=== PATIENT | female | born 1970 | race Caucasian/White ===

== ENCOUNTER 2019-04-07 05:34 | Inpatient (IN) ==
[2019-04-06 11:04] LABS: Basophils % 0.2 % (0.0-0.8); Eosinophils # 0.3 10*3/uL (0.0-0.87); Eosinophils % 3.2 % (0.00-10.9); Hematocrit 48.7 VOL% (35.7-47.0); Hemoglobin 15.3 GM/DL (12.0-16.0); Immature Granulocytes % 0.8 %; Immature Granulocytes Absolute 0.08 #; Lymphocytes # 2.7 10*3/uL (1.4-4.0); Lymphocytes % 25.8 % (21.3-54.2); Mean Corpuscular HGB Conc 31.4 GM/DL (32-36); Mean Corpuscular Volume 96.6 FL (87-102); Mean Platelet Volume 10.7 FL (9.6-12.0); Monocytes % 8.9 % (1.7-12.7); Neutrophils % 61.1 % (38.7-73.9); Platelet Count 299 T/CUMM (130-400); Red Blood Count 5.04 MC/CUMM (3.8-5.5); Red Cell Distribution Width 15.4 % (9.3-17.3); White Blood Count 10.6 T/CUMM (4-12)
[2019-04-06 11:10] LABS: Apearance,Urine CLEAR (Clear); Bilirubin,Urine Negative (Negative); Blood, Urine Small mg/dL (Negative); Glucose,Urine (UA) Negative (Negative); Hyaline Casts,Urine 1 /LPF (0-3); Ketones,Urine Negative (Negative); Mucus,Urine Occasional /LPF (Occasional); Nitrite,Urine Negative (Negative); Protein,Urine 100 MG/DL; RBC,Urine 3 /HPF (0-4); Squamous Epithelial Cell,Urine Occasional /HPF (0-10); Urine Color Yellow (Yellow); Urine Specific Gravity 1.012 (1.001-1.035); Urine Urobilinogen < 2.0 EU/DL (0.2-1.0); WBC,Urine <1 /HPF (0-6)
[2019-04-06 11:12] LABS: PT Patient Result 10.8 SECS
[2019-04-06 11:25] LABS: Calcium 9.5 MG/DL (8.5-10.1); Osmolality,Calculated 279.8 MOS/KG (273-304)
[~2019-04-07 05:34] MED LIST: DIAZEPAM 5 MG TABLET PO ONE; FAMOTIDINE 20 MG TABLET PO ONE; SODIUM CHLORIDE 0.9% 1,000 ML IV PRN; TISSUE ADHESIVE 1 EACH APPLICATOR TOP ONE; VANCOMYCIN 1,000 MG VIAL ONE
[2019-04-07] MEDS ORDERED: DIAZEPAM 5 MG TABLET ONE (06:08)
[2019-04-07] MEDS ORDERED: CEFUROXIME 1,500 MG VIAL ONE (06:08)
[2019-04-07] MEDS ORDERED: METOCLOPRAMIDE 10 MG/2 ML VIAL ONE (06:08)
[2019-04-07] MEDS ORDERED: FAMOTIDINE 20 MG TABLET ONE (06:08)
[2019-04-07] MEDS ORDERED: CEFUROXIME INJ 1,500 MG in SYRINGE 1 EACH IV ONE (06:30)
[2019-04-07] MEDS ORDERED: METOCLOPRAMIDE 10 MG/2 ML VIAL IV ONE (06:30)
[2019-04-07] MEDS: SODIUM CHLORIDE 0.9% 1,000 ML IV SCH (07:20)
[2019-04-07] MEDS ORDERED: NITROPRUSSIDE 50 MG/2 ML VIAL ONE (07:58)
[2019-04-07] MEDS ORDERED: POTASSIUM CHLORIDE RIDER 100 ML IV ONE ×2 (07:59)
[2019-04-07] MEDS ORDERED: PHENYLEPHRINE DRIP 40 MG/250 ML PREMIX IV ONE (07:59)
[2019-04-07] MEDS ORDERED: SODIUM BICARBONATE 50 MEQ/50 ML VIAL IV ONE ×2 (07:59→11:20)
[2019-04-07] MEDS ORDERED: CALCIUM CHLORIDE 1,000 MG/10 ML SYRINGE IV ONE (07:59)
[2019-04-07 08:01] LABS: ABG Base Excess -0.7 MMOL/L (-2.5-2.5); ABG HCO3 23.9 MMOL/L (20-26); ABG Oxygen Saturation 97.4 % (95-100); ABG PCO2 45.2 MM HG (35-48); ABG PH 7.356 (7.35-7.45); ABG TCO2 21.9 MMOL/L (23-27); Glucose Heart Surgery 163 MG/DL (74-106); Hematocrit Heart Surgery 42.8 PERCENT (37-47); Hemoglobin Heart Surgery 13.9 G/DL (12.0-16.0); PCO2 Patient Temp Arterial 45.2 MMHG; PH Patient Temp Arterial 7.356; Patient Temperature 37 CELCIUS; Potassium Heart/CVR 2.8 MMOL/L (3.5-5.1); Sodium Heart/CVR 140 MMOL/L (135-145)
[2019-04-07 08:26] LABS: ABG Base Excess -0.6 MMOL/L (-2.5-2.5); ABG Oxygen Saturation 99.8 % (95-100); ABG PH 7.398 (7.35-7.45); ABG TCO2 20.9 MMOL/L (23-27); Glucose Heart Surgery 151 MG/DL (74-106); Hematocrit Heart Surgery 41.7 PERCENT (37-47); Hemoglobin Heart Surgery 13.6 G/DL (12.0-16.0); Ionized Calcium Arterial 1.21 MMOL/L (1.21-1.46); PH Patient Temp Arterial 7.398; Patient Temperature 37 CELCIUS; Potassium Heart/CVR 3.6 MMOL/L (3.5-5.1); Sodium Heart/CVR 139 MMOL/L (135-145)
[2019-04-07 08:50] LABS: Apearance,Urine CLEAR (Clear); Bilirubin,Urine Negative (Negative); Blood, Urine Small mg/dL (Negative); Glucose,Urine (UA) Negative (Negative); Ketones,Urine Negative (Negative); Mucus,Urine Occasional /LPF (Occasional); Nitrite,Urine Negative (Negative); Protein,Urine 30 MG/DL; RBC,Urine 2 /HPF (0-4); Squamous Epithelial Cell,Urine Occasional /HPF (0-10); Urine Color Yellow (Yellow); Urine Specific Gravity 1.009 (1.001-1.035); Urine Urobilinogen < 2.0 EU/DL (0.2-1.0)
[2019-04-07 08:52] LABS: Hematocrit Heart Surgery 31.3 PERCENT (37-47); Hemoglobin Heart Surgery 10.1 G/DL (12.0-16.0); PCO2 Patient Temp Venous 29.6 MM HG; PH Patient Temp Venous 7.507; PO2 Patient Temp Venous 38.5 MM HG; Potassium Heart/CVR 3.9 MMOL/L (3.5-5.1); VBG Base Excess 1.2 MEQ/L (0-4); VBG HCO3 25.4 MEQ/L (24-28); VBG Oxygen Saturation 91.5 %; VBG PCO2 41.6 MMHG (41-51); VBG PH 7.405; VBG PO2 61.4 MMHG (17-40)
[2019-04-07] MEDS ORDERED: EPINEPHrine 1 MG/10 ML SYRINGE ONE (09:19)
[2019-04-07] MEDS ORDERED: ALBUMIN 5% 12.5 GM/250 ML VIAL IV ONE ×2 (09:19→11:21)
[2019-04-07] MEDS ORDERED: ATROPINE 1 MG/10 ML SYRINGE ONE (09:20)
[2019-04-07 09:28] LABS: Hematocrit Heart Surgery 30.3 PERCENT (37-47); Hemoglobin Heart Surgery 9.8 G/DL (12.0-16.0); PCO2 Patient Temp Venous 26.9 MM HG; PH Patient Temp Venous 7.532; PO2 Patient Temp Venous 38.1 MM HG; Potassium Heart/CVR 4.4 MMOL/L (3.5-5.1); VBG Base Excess 0.8 MEQ/L (0-4); VBG HCO3 25.1 MEQ/L (24-28); VBG Oxygen Saturation 91.6 %; VBG PCO2 37.8 MMHG (41-51); VBG PH 7.429; VBG PO2 60.7 MMHG (17-40)
[2019-04-07 09:51] LABS: Hematocrit Heart Surgery 32.4 PERCENT (37-47); Hemoglobin Heart Surgery 10.5 G/DL (12.0-16.0); PCO2 Patient Temp Venous 25.7 MM HG; PH Patient Temp Venous 7.544; Potassium Heart/CVR 4.7 MMOL/L (3.5-5.1); VBG Base Excess 0.7 MEQ/L (0-4); VBG HCO3 24.9 MEQ/L (24-28); VBG Oxygen Saturation 89.1 %; VBG PCO2 36.1 MMHG (41-51); VBG PH 7.44; VBG PO2 54.6 MMHG (17-40)
[2019-04-07 10:21] LABS: Hemoglobin Heart Surgery 11.1 G/DL (12.0-16.0); PCO2 Patient Temp Venous 23.9 MM HG; PH Patient Temp Venous 7.58; PO2 Patient Temp Venous 32.4 MM HG; VBG Base Excess 0.1 MEQ/L (0-4); VBG HCO3 23.5 MEQ/L (24-28); VBG Oxygen Saturation 89.3 %; VBG PCO2 33.9 MMHG (41-51); VBG PH 7.459; VBG PO2 56.5 MMHG (17-40)
[2019-04-07 10:56] LABS: Hemoglobin Heart Surgery 10.4 G/DL (12.0-16.0); PCO2 Patient Temp Venous 37.6 MM HG; PH Patient Temp Venous 7.416; PO2 Patient Temp Venous 40.5 MM HG; Potassium Heart/CVR 5.2 MMOL/L (3.5-5.1); VBG Base Excess -0.1 MEQ/L (0-4); VBG HCO3 23.9 MEQ/L (24-28); VBG Oxygen Saturation 74.4 %; VBG PCO2 37.6 MMHG (41-51); VBG PH 7.416; VBG PO2 40.5 MMHG (17-40)
[2019-04-07] MEDS ORDERED: MANNITOL 100 GM/500 ML BAG IV ONE (11:19)
[2019-04-07] MEDS ORDERED: HEPARIN 10,000 UNIT/10 ML VIAL ONE (11:20)
[2019-04-07] MEDS ORDERED: MAGNESIUM SULFATE 5 GM/10 ML VIAL IV ONE (11:20)
[2019-04-07] MEDS ORDERED: DEXTROSE 5% KCL 20 MEQ 40 MEQ/2,000 ML BAG IV ONE (11:20)
[2019-04-07] MEDS ORDERED: ALBUMIN 25% 25 GM/100 ML VIAL IV ONE (11:20)
[2019-04-07] MEDS ORDERED: PROTAMINE SULFATE 250 MG/25 ML VIAL IV ONE (11:20)
[2019-04-07] MEDS ORDERED: methylPREDNISolone SOD SUC 1,000 MG/8 ML VIAL ONE (11:20)
[2019-04-07] MEDS ORDERED: FUROSEMIDE 20 MG/2 ML VIAL ONE (11:21)
[2019-04-07] MEDS ORDERED: PROTAMINE SULFATE 50 MG/5 ML VIAL IV ONE (11:21)
[2019-04-07] MEDS ORDERED: POTASSIUM CHLORIDE 20 MEQ/10 ML VIAL ONE (11:21)
[2019-04-07 11:31] LABS: ABG Base Excess -3.1 MMOL/L (-2.5-2.5); ABG HCO3 21.8 MMOL/L (20-26); ABG PCO2 38.8 MM HG (35-48); ABG PH 7.361 (7.35-7.45); ABG TCO2 19.9 MMOL/L (23-27); Glucose Heart Surgery 293 MG/DL (74-106); Hematocrit Heart Surgery 33.1 PERCENT (37-47); Hemoglobin Heart Surgery 10.7 G/DL (12.0-16.0); Ionized Calcium Arterial 1.49 MMOL/L (1.21-1.46); PCO2 Patient Temp Arterial 38.8 MMHG; PH Patient Temp Arterial 7.361; Patient Temperature 37 CELCIUS; Potassium Heart/CVR 4.1 MMOL/L (3.5-5.1); Sodium Heart/CVR 134 MMOL/L (135-145)
[2019-04-07] MEDS ORDERED: MAGNESIUM SULF RIDER 4 GM in PREMIX 1 EACH IV PRN (12:27)
[2019-04-07] MEDS ORDERED: SODIUM CHLORIDE 0.9% 250 ML IV PRN (12:27)
[2019-04-07] MEDS ORDERED: CALCIUM CHLORIDE 1,000 MG/10 ML SYRINGE IV PRN (12:27)
[2019-04-07] MEDS ORDERED: POTASSIUM CHLORIDE RIDER 20 MEQ in PREMIX 1 EACH IV PRN (12:27)
[2019-04-07] MEDS ORDERED: INSULIN REGULAR 100 UNIT/ML IV PRN (12:27)
[2019-04-07] MEDS ORDERED: DEXTROSE 50% 25 GM/50 ML VIAL IV PRN ×2 (12:27)
[2019-04-07] MEDS ORDERED: MAGNESIUM SULF RIDER 2 GM in PREMIX 1 EACH IV PRN (12:27)
[2019-04-07] MEDS ORDERED: MIDAZOLAM 2 MG/2 ML VIAL IV PRN (12:27)
[2019-04-07] MEDS ORDERED: CHLORHEXIDINE 4% SOLN 118 ML BOTTLE TOP PRN (12:27)
[2019-04-07] MEDS ORDERED: ACETAMINOPHEN 650 MG SUPP RECTAL PRN (12:27)
[2019-04-07] MEDS ORDERED: ONDANSETRON 4 MG/2 ML VIAL IV PRN (12:27)
[2019-04-07] MEDS ORDERED: INSULIN REGULAR DRIP 100 ML IV SCH (12:30)
[2019-04-07] MEDS: SODIUM CHLORIDE 0.45% 1,000 ML IV SCH ×2 (13:00)
[2019-04-07] MEDS: ALBUMIN 5% 12.5 GM in PREMIX 1 EACH IV PRN ×3 (13:00→19:49)
[2019-04-07 13:04] LABS: ABG Base Excess -3.1 MMOL/L (-2.5-2.5); ABG HCO3 21.8 MMOL/L (20-26); ABG Oxygen Saturation 93.6 % (95-100); ABG PCO2 53.9 MM HG (35-48); ABG PO2 81.5 MM HG (80-95); ABG TCO2 22.2 MMOL/L (23-27); Glucose Heart Surgery 224 MG/DL (74-106); Hematocrit Heart Surgery 38.1 PERCENT (37-47); Hemoglobin Heart Surgery 12.4 G/DL (12.0-16.0); Potassium Heart/CVR 3.8 MMOL/L (3.5-5.1)
[2019-04-07 13:06] LABS: Basophils % 0.2 % (0.0-0.8); Eosinophils # 0.2 10*3/uL (0.0-0.87); Eosinophils % 0.9 % (0.00-10.9); Hematocrit 38.5 VOL% (35.7-47.0); Immature Granulocytes % 1.2 %; Immature Granulocytes Absolute 0.22 #; Lymphocytes % 10.7 % (21.3-54.2); Mean Corpuscular HGB Conc 30.9 GM/DL (32-36); Mean Corpuscular Volume 98.5 FL (87-102); Mean Platelet Volume 11.2 FL (9.6-12.0); Monocytes % 7.1 % (1.7-12.7); Neutrophils % 79.9 % (38.7-73.9); Red Cell Distribution Width 15.5 % (9.3-17.3)
[2019-04-07 13:11] LABS: Hemoglobin 11.9 GM/DL (12.0-16.0); Platelet Count 224 T/CUMM (130-400); Red Blood Count 3.91 MC/CUMM (3.8-5.5); White Blood Count 18.4 T/CUMM (4-12)
[2019-04-07] MEDS ORDERED: PHENYLEPHRINE DRIP 20 MG/250 ML PREMIX IV ONE (13:14)
[2019-04-07] MEDS ORDERED: CALCIUM CHLORIDE 1,000 MG/10 ML VIAL IV ONE (13:14)
[2019-04-07] MEDS ORDERED: SEVOFLURANE 1 UNIT/15 MINUTE INH ONE (13:15)
[2019-04-07] MEDS ORDERED: SUFentanil 250 MCG/5 ML AMP ONE (13:15)
[2019-04-07] MEDS ORDERED: ETOMIDATE 40 MG/20 ML VIAL IV ONE (13:15)
[2019-04-07] MEDS ORDERED: MIDAZOLAM 10 MG/2 ML VIAL ONE (13:15)
[2019-04-07] MEDS ORDERED: VECURONIUM 10 MG VIAL IV ONE (13:15)
[2019-04-07] MEDS ORDERED: SODIUM CHLORIDE 0.9% 1,000 ML IV ONE (13:16)
[2019-04-07] MEDS ORDERED: SODIUM CHLORIDE 0.9% 100 ML IV ONE (13:16)
[2019-04-07] MEDS ORDERED: NITROGLYCERIN DRIP 50 MG/250 ML BOTTLE IV ONE (13:16)
[2019-04-07] MEDS ORDERED: SODIUM CHLORIDE 0.9% 250 ML IV ONE (13:16)
[2019-04-07] MEDS ORDERED: LACTATED RINGERS 1,000 ML IV ONE (13:16)
[2019-04-07] MEDS ORDERED: AMINOCAPROIC ACID 5,000 MG/20 ML VIAL ONE (13:16)
[2019-04-07 13:21] LABS: INR 1.1; PT Patient Result 11.7 SECS; Partial Thromboplastin Time 23.4 SECS (0-40)
[2019-04-07] MEDS ORDERED: HEPARIN/NACL 0.9% 2 UNITS/ML 500 ML IV ONE (13:26)
[2019-04-07 13:38] LABS: Blood Urea Nitrogen 18 MG/DL (7-18); Glucose 206 MG/DL (74-106); Osmolality,Calculated 288.3 MOS/KG (273-304)
[2019-04-07] MEDS ORDERED: SODIUM CHLORIDE 0.9% 1,000 ML IV PRN (14:29)
[2019-04-07 16:27] LABS: ABG Base Excess -1.8 MMOL/L (-2.5-2.5); ABG HCO3 24.6 MMOL/L (20-26); ABG Oxygen Saturation 95.7 % (95-100); ABG PCO2 48.9 MM HG (35-48); ABG PO2 94.1 MM HG (80-95); ABG TCO2 26.1 MMOL/L (23-27); Glucose Heart Surgery 154 MG/DL (74-106); Hemoglobin Heart Surgery 12.6 G/DL (12.0-16.0); Potassium Heart/CVR 4.8 MMOL/L (3.5-5.1)
[2019-04-07] MEDS: CEFUROXIME INJ 1,500 MG in SYRINGE 1 EACH IV SCH (20:29)
[2019-04-07] MEDS: CHLORHEXIDINE 0.12% ORAL RINSE 60 ML BOTTLE SWISH/SPIT SCH (21:28)
[2019-04-07] MEDS: FAMOTIDINE 20 MG/2 ML VIAL IV SCH (21:40)
[2019-04-07] MEDS: MORPHINE 10 MG/1 ML VIAL IV PRN (23:38)
[2019-04-08] MEDS: SODIUM CHLORIDE 0.45% 1,000 ML IV SCH ×2 (01:05→09:14)
[2019-04-08 04:19] LABS: Basophils % 0.1 % (0.0-0.8); Hematocrit 33.5 VOL% (35.7-47.0); Hemoglobin 10.4 GM/DL (12.0-16.0); Immature Granulocytes % 0.7 %; Lymphocytes % 6.8 % (21.3-54.2); Mean Corpuscular Volume 97.4 FL (87-102); Mean Platelet Volume 11.5 FL (9.6-12.0); Monocytes % 4.2 % (1.7-12.7); Neutrophils % 88.2 % (38.7-73.9); Platelet Count 172 T/CUMM (130-400); Red Blood Count 3.44 MC/CUMM (3.8-5.5); Red Cell Distribution Width 15.6 % (9.3-17.3); White Blood Count 15.3 T/CUMM (4-12)
[2019-04-08 04:26] LABS: ABG HCO3 22.2 MMOL/L (20-26); ABG Oxygen Saturation 93.8 % (95-100); ABG PCO2 35.8 MM HG (35-48); ABG PO2 73.9 MM HG (80-95); ABG TCO2 23.3 MMOL/L (23-27); Glucose Heart Surgery 140 MG/DL (74-106); Hemoglobin Heart Surgery 11.4 G/DL (12.0-16.0); Potassium Heart/CVR 3.8 MMOL/L (3.5-5.1)
[2019-04-08 04:46] LABS: PT Patient Result 10.5 SECS
[2019-04-08 04:51] LABS: Calcium 9.2 MG/DL (8.5-10.1); Osmolality,Calculated 292.8 MOS/KG (273-304)
[2019-04-08] MEDS ORDERED: LEVALBUTEROL 1.25 MG/3 ML NEB RESP TX ONE (05:03)
[2019-04-08] MEDS: SODIUM CHLORIDE 0.9% 1,000 ML IV SCH (07:49)
[2019-04-08] MEDS: CHLORHEXIDINE 0.12% ORAL RINSE 60 ML BOTTLE SWISH/SPIT SCH ×2 (08:31→21:19)
[2019-04-08] MEDS: CEFUROXIME INJ 1,500 MG in SYRINGE 1 EACH IV SCH ×2 (08:31→20:03)
[2019-04-08] MEDS: FAMOTIDINE 20 MG/2 ML VIAL IV SCH ×2 (08:31→21:16)
[2019-04-08] MEDS: ASPIRIN EC 325 MG TABLET PO SCH (08:31)
[2019-04-08] MEDS: FUROSEMIDE 40 MG TABLET PO SCH (08:31)
[2019-04-08] MEDS ORDERED: FUROSEMIDE 40 MG/4 ML VIAL IV ONE (08:48)
[2019-04-08] MEDS ORDERED: ALBUTEROL 2.5 MG/3 ML NEB RESP TX PRN ×2 (08:49→10:30)
[2019-04-08] MEDS ORDERED: LEVALBUTEROL 1.25 MG/3 ML NEB RESP TX PRN (09:08)
[2019-04-08] MEDS: MORPHINE 4 MG/1 ML VIAL IV PRN ×2 (09:21→19:58)
[2019-04-08] MEDS ORDERED: METOCLOPRAMIDE 10 MG TABLET PO PRN (10:02)
[2019-04-08] MEDS ORDERED: COLCHICINE 0.6 MG CAPSULE PO PRN (10:02)
[2019-04-08] MEDS: MORPHINE 10 MG/1 ML VIAL IV PRN ×3 (12:33→19:55)
[2019-04-08] MEDS: INSULIN REGULAR 100 UNIT/ML SUBCUT SCH ×2 (12:33→13:01)
[2019-04-08] MEDS ORDERED: GLUCAGON 1 MG VIAL IM PRN (13:39)
[2019-04-08] MEDS: INSULIN LISPRO 100 UNIT/ML SUBCUT SCH ×2 (18:20→22:05)
[2019-04-08] MEDS: traMADol 50 MG TABLET PO PRN (18:23)
[2019-04-08] MEDS: ATORVASTATIN 40 MG TABLET PO SCH (21:16)
[2019-04-09 05:30] LABS: Basophils % 0.1 % (0.0-0.8); Hematocrit 34.8 VOL% (35.7-47.0); Hemoglobin 10.9 GM/DL (12.0-16.0); Immature Granulocytes % 1.1 %; Immature Granulocytes Absolute 0.19 #; Lymphocytes # 1.3 10*3/uL (1.4-4.0); Lymphocytes % 7.6 % (21.3-54.2); Mean Corpuscular HGB Conc 31.3 GM/DL (32-36); Mean Corpuscular Volume 97.5 FL (87-102); Mean Platelet Volume 12.5 FL (9.6-12.0); Monocytes % 7.5 % (1.7-12.7); NRBC # 0.03 10*3/uL; Neutrophils % 83.7 % (38.7-73.9); Platelet Count 166 T/CUMM (130-400); Red Blood Count 3.57 MC/CUMM (3.8-5.5); Red Cell Distribution Width 15.9 % (9.3-17.3); White Blood Count 17.6 T/CUMM (4-12)
[2019-04-09 06:04] LABS: Calcium 9.4 MG/DL (8.5-10.1); Osmolality,Calculated 286.7 MOS/KG (273-304)
[2019-04-09] MEDS: MORPHINE 4 MG/1 ML VIAL IV PRN (07:15)
[2019-04-09] MEDS: SODIUM CHLORIDE 0.9% 1,000 ML IV SCH (08:09)
[2019-04-09] MEDS: ATENOLOL 50 MG TABLET PO SCH ×2 (09:11→21:51)
[2019-04-09] MEDS: DIGOXIN 0.25 MG TABLET PO SCH (09:11)
[2019-04-09] MEDS: FUROSEMIDE 40 MG TABLET PO SCH (09:13)
[2019-04-09] MEDS: ASPIRIN EC 325 MG TABLET PO SCH (09:14)
[2019-04-09] MEDS: FAMOTIDINE 20 MG/2 ML VIAL IV SCH ×2 (09:14→21:53)
[2019-04-09] MEDS: INSULIN LISPRO 100 UNIT/ML SUBCUT SCH ×4 (09:14→21:59)
[2019-04-09] MEDS: CHLORHEXIDINE 0.12% ORAL RINSE 60 ML BOTTLE SWISH/SPIT SCH ×2 (09:15→21:52)
[2019-04-09] MEDS: glipiZIDE 5 MG TABLET PO SCH ×2 (09:15→21:52)
[2019-04-09] MEDS: ATORVASTATIN 40 MG TABLET PO SCH (21:52)
[2019-04-10] MEDS: MORPHINE 10 MG/1 ML VIAL IV PRN (01:40)
[2019-04-10 05:17] LABS: Basophils % 0.2 % (0.0-0.8); Hematocrit 37.6 VOL% (35.7-47.0); Hemoglobin 11.7 GM/DL (12.0-16.0); Immature Granulocytes % 1.2 %; Immature Granulocytes Absolute 0.22 #; Lymphocytes # 1.9 10*3/uL (1.4-4.0); Mean Corpuscular HGB Conc 31.1 GM/DL (32-36); Mean Corpuscular Volume 97.7 FL (87-102); Mean Platelet Volume 12.6 FL (9.6-12.0); Monocytes % 9.7 % (1.7-12.7); NRBC # 0.13 10*3/uL; Neutrophils % 78.9 % (38.7-73.9); Platelet Count 183 T/CUMM (130-400); Red Blood Count 3.85 MC/CUMM (3.8-5.5); Red Cell Distribution Width 15.9 % (9.3-17.3); White Blood Count 19.1 T/CUMM (4-12)
[2019-04-10 05:40] LABS: Calcium 8.8 MG/DL (8.5-10.1); Osmolality,Calculated 282.7 MOS/KG (273-304)
[2019-04-10] MEDS: SODIUM CHLORIDE 0.9% 1,000 ML IV SCH (08:32)
[2019-04-10] MEDS: glipiZIDE 5 MG TABLET PO SCH (09:09)
[2019-04-10] MEDS: DIGOXIN 0.25 MG TABLET PO SCH (09:09)
[2019-04-10] MEDS: ASPIRIN EC 325 MG TABLET PO SCH (09:10)
[2019-04-10] MEDS: FUROSEMIDE 40 MG TABLET PO SCH (09:10)
[2019-04-10] MEDS: ATENOLOL 50 MG TABLET PO SCH ×2 (09:10→21:35)
[2019-04-10] MEDS: INSULIN LISPRO 100 UNIT/ML SUBCUT SCH ×4 (09:13→20:38)
[2019-04-10] MEDS: FAMOTIDINE 20 MG/2 ML VIAL IV SCH ×2 (10:23→21:42)
[2019-04-10] MEDS: CHLORHEXIDINE 0.12% ORAL RINSE 60 ML BOTTLE SWISH/SPIT SCH ×2 (10:33→21:37)
[2019-04-10] MEDS: CLORAZEPATE 3.75 MG TABLET PO SCH ×2 (14:28→21:35)
[2019-04-10] MEDS: MORPHINE 4 MG/1 ML VIAL IV PRN ×2 (17:22→21:33)
[2019-04-10] MEDS: WARFARIN 7.5 MG TABLET PO SCH (17:22)
[2019-04-10] MEDS: ATORVASTATIN 40 MG TABLET PO SCH (21:35)
[2019-04-10] MEDS: INSULIN GLARGINE 100 UNIT/ML SUBCUT SCH (21:42)
[2019-04-11 04:55] LABS: Basophils % 0.2 % (0.0-0.8); Eosinophils % 0.1 % (0.00-10.9); Hematocrit 35.8 VOL% (35.7-47.0); Hemoglobin 11.1 GM/DL (12.0-16.0); Immature Granulocytes Absolute 0.17 #; Lymphocytes # 1.2 10*3/uL (1.4-4.0); Lymphocytes % 6.7 % (21.3-54.2); Mean Corpuscular Volume 96.2 FL (87-102); Mean Platelet Volume 12.4 FL (9.6-12.0); Monocytes % 7.5 % (1.7-12.7); NRBC # 0.14 10*3/uL; Neutrophils % 84.5 % (38.7-73.9); Platelet Count 187 T/CUMM (130-400); Red Blood Count 3.72 MC/CUMM (3.8-5.5); Red Cell Distribution Width 15.8 % (9.3-17.3); White Blood Count 17.6 T/CUMM (4-12)
[2019-04-11 05:01] LABS: INR 1.1; PT Patient Result 11.5 SECS
[2019-04-11 05:19] LABS: Calcium 8.3 MG/DL (8.5-10.1); Osmolality,Calculated 280.7 MOS/KG (273-304)
[2019-04-11] MEDS: POTASSIUM CHLORIDE RIDER 10 MEQ in PREMIX 1 EACH IV PRN ×2 (06:33→10:35)
[2019-04-11] MEDS: CLORAZEPATE 3.75 MG TABLET PO SCH ×3 (06:36→22:09)
[2019-04-11] MEDS: INSULIN LISPRO 100 UNIT/ML SUBCUT SCH ×4 (08:18→21:30)
[2019-04-11] MEDS: SODIUM CHLORIDE 0.9% 1,000 ML IV SCH (08:20)
[2019-04-11] MEDS: ATENOLOL 50 MG TABLET PO SCH ×2 (09:05→22:09)
[2019-04-11] MEDS: DIGOXIN 0.25 MG TABLET PO SCH (09:05)
[2019-04-11] MEDS: FUROSEMIDE 40 MG TABLET PO SCH (09:05)
[2019-04-11] MEDS: glipiZIDE 5 MG TABLET PO SCH (09:06)
[2019-04-11] MEDS: ASPIRIN EC 325 MG TABLET PO SCH (09:06)
[2019-04-11] MEDS: CHLORHEXIDINE 0.12% ORAL RINSE 60 ML BOTTLE SWISH/SPIT SCH ×2 (09:06→22:10)
[2019-04-11] MEDS ORDERED: WARFARIN 7.5 MG TABLET PO ONE ×2 (10:18→18:00)
[2019-04-11] MEDS: FAMOTIDINE 20 MG/2 ML VIAL IV SCH (10:23)
[2019-04-11] MEDS: HEPARIN DRIP 25,000 UNITS/500 ML PREMIX IV SCH (10:33)
[2019-04-11] MEDS ORDERED: HEPARIN DRIP 25,000 UNITS/500 ML PREMIX IV SCH (11:00)
[2019-04-11] MEDS ORDERED: WARFARIN 5 MG TABLET PO SCH (18:00)
[2019-04-11] MEDS ORDERED: HEPARIN 5,000 UNIT/1 ML VIAL IV ONE (18:58)
[2019-04-11] MEDS: INSULIN GLARGINE 100 UNIT/ML SUBCUT SCH (22:08)
[2019-04-11] MEDS: ATORVASTATIN 40 MG TABLET PO SCH (22:09)
[2019-04-12 01:18] LABS: INR 1.2
[2019-04-12 01:24] LABS: Partial Thromboplastin Time 45.3 SECS (0-40)
[2019-04-12] MEDS: CLORAZEPATE 3.75 MG TABLET PO SCH ×3 (04:31→20:43)
[2019-04-12 05:10] LABS: Basophils % 0.2 % (0.0-0.8); Eosinophils # 0.1 10*3/uL (0.0-0.87); Eosinophils % 0.9 % (0.00-10.9); Hematocrit 30.7 VOL% (35.7-47.0); Hemoglobin 9.7 GM/DL (12.0-16.0); Immature Granulocytes % 1.3 %; Immature Granulocytes Absolute 0.21 #; Lymphocytes # 1.7 10*3/uL (1.4-4.0); Lymphocytes % 10.3 % (21.3-54.2); Mean Corpuscular HGB Conc 31.6 GM/DL (32-36); Mean Corpuscular Volume 97.2 FL (87-102); Mean Platelet Volume 12.4 FL (9.6-12.0); Monocytes % 7.6 % (1.7-12.7); NRBC # 0.12 10*3/uL; Neutrophils % 79.7 % (38.7-73.9); Platelet Count 169 T/CUMM (130-400); Red Blood Count 3.16 MC/CUMM (3.8-5.5); Red Cell Distribution Width 15.9 % (9.3-17.3); White Blood Count 16.1 T/CUMM (4-12)
[2019-04-12 05:15] LABS: INR 1.2; PT Patient Result 13.1 SECS
[2019-04-12 05:30] LABS: Calcium 8.4 MG/DL (8.5-10.1); Osmolality,Calculated 277.8 MOS/KG (273-304)
[2019-04-12] MEDS: HEPARIN DRIP 25,000 UNITS/500 ML PREMIX IV SCH ×2 (07:44→12:57)
[2019-04-12] MEDS: INSULIN LISPRO 100 UNIT/ML SUBCUT SCH ×4 (07:56→20:46)
[2019-04-12 08:55] LABS: INR 1.2; PT Patient Result 13.5 SECS
[2019-04-12 08:58] LABS: Partial Thromboplastin Time 43.4 SECS (0-40)
[2019-04-12] MEDS: POTASSIUM CHLORIDE 20 MEQ TABLET PO PRN ×2 (09:34→09:35)
[2019-04-12] MEDS: DIGOXIN 0.25 MG TABLET PO SCH (09:34)
[2019-04-12] MEDS: FUROSEMIDE 40 MG TABLET PO SCH (09:34)
[2019-04-12] MEDS: ASPIRIN EC 325 MG TABLET PO SCH (09:34)
[2019-04-12] MEDS: glipiZIDE 5 MG TABLET PO SCH (09:35)
[2019-04-12] MEDS: ATENOLOL 50 MG TABLET PO SCH ×2 (09:35→20:44)
[2019-04-12] MEDS: PANTOPRAZOLE 40 MG TABLET PO SCH (09:35)
[2019-04-12] MEDS: CHLORHEXIDINE 0.12% ORAL RINSE 60 ML BOTTLE SWISH/SPIT SCH ×2 (09:35→20:46)
[2019-04-12] MEDS: LEVALBUTEROL 1.25 MG/3 ML NEB RESP TX SCH ×2 (17:37→19:33)
[2019-04-12] MEDS: WARFARIN 7.5 MG TABLET PO SCH (17:53)
[2019-04-12] MEDS: ATORVASTATIN 40 MG TABLET PO SCH (20:43)
[2019-04-12] MEDS: INSULIN GLARGINE 100 UNIT/ML SUBCUT SCH (20:44)
[2019-04-12] MEDS: traMADol 50 MG TABLET PO PRN (23:51)
[2019-04-13] MEDS: LEVALBUTEROL 1.25 MG/3 ML NEB RESP TX SCH ×4 (00:33→19:53)
[2019-04-13] MEDS: CLORAZEPATE 3.75 MG TABLET PO SCH ×3 (04:19→22:05)
[2019-04-13] MEDS: HEPARIN DRIP 25,000 UNITS/500 ML PREMIX IV SCH ×3 (04:20→22:11)
[2019-04-13 05:08] LABS: Basophils % 0.3 % (0.0-0.8); Eosinophils # 0.3 10*3/uL (0.0-0.87); Eosinophils % 1.7 % (0.00-10.9); Hematocrit 27.7 VOL% (35.7-47.0); Hemoglobin 8.8 GM/DL (12.0-16.0); Immature Granulocytes % 2.2 %; Immature Granulocytes Absolute 0.33 #; Lymphocytes # 1.5 10*3/uL (1.4-4.0); Lymphocytes % 10.2 % (21.3-54.2); Mean Corpuscular HGB Conc 31.8 GM/DL (32-36); Mean Corpuscular Volume 97.2 FL (87-102); Mean Platelet Volume 12.8 FL (9.6-12.0); Monocytes % 10.2 % (1.7-12.7); Neutrophils % 75.4 % (38.7-73.9); Platelet Count 189 T/CUMM (130-400); Red Blood Count 2.85 MC/CUMM (3.8-5.5); Red Cell Distribution Width 15.9 % (9.3-17.3); White Blood Count 15.1 T/CUMM (4-12)
[2019-04-13 05:26] LABS: INR 1.3; PT Patient Result 14.1 SECS
[2019-04-13 05:42] LABS: Calcium 8.4 MG/DL (8.5-10.1); Osmolality,Calculated 273.2 MOS/KG (273-304)
[2019-04-13] MEDS: POTASSIUM CHLORIDE 20 MEQ TABLET PO PRN (06:08)
[2019-04-13] MEDS ORDERED: WARFARIN 10 MG TABLET PO ONE (09:00)
[2019-04-13] MEDS: INSULIN LISPRO 100 UNIT/ML SUBCUT SCH ×4 (09:22→23:26)
[2019-04-13] MEDS: DIGOXIN 0.25 MG TABLET PO SCH (09:23)
[2019-04-13] MEDS: FUROSEMIDE 40 MG TABLET PO SCH (09:23)
[2019-04-13] MEDS: glipiZIDE 5 MG TABLET PO SCH (09:23)
[2019-04-13] MEDS: ASPIRIN EC 325 MG TABLET PO SCH (09:23)
[2019-04-13] MEDS: PANTOPRAZOLE 40 MG TABLET PO SCH (09:23)
[2019-04-13] MEDS: CHLORHEXIDINE 0.12% ORAL RINSE 60 ML BOTTLE SWISH/SPIT SCH ×2 (09:24→22:13)
[2019-04-13] MEDS: ATENOLOL 50 MG TABLET PO SCH ×2 (09:24→22:14)
[2019-04-13] MEDS: WARFARIN 7.5 MG TABLET PO SCH (17:05)
[2019-04-13] MEDS: ATORVASTATIN 40 MG TABLET PO SCH (22:05)
[2019-04-13] MEDS: INSULIN GLARGINE 100 UNIT/ML SUBCUT SCH (23:26)
[2019-04-14] MEDS: LEVALBUTEROL 1.25 MG/3 ML NEB RESP TX SCH ×4 (00:43→20:07)
[2019-04-14 03:11] LABS: Basophils # 0.1 10*3/uL (0.0-0.2); Basophils % 0.4 % (0.0-0.8); Eosinophils # 0.3 10*3/uL (0.0-0.87); Eosinophils % 1.7 % (0.00-10.9); Hematocrit 26.3 VOL% (35.7-47.0); Hemoglobin 8.4 GM/DL (12.0-16.0); Immature Granulocytes % 3.6 %; Immature Granulocytes Absolute 0.61 #; Lymphocytes # 1.7 10*3/uL (1.4-4.0); Lymphocytes % 9.8 % (21.3-54.2); Mean Corpuscular HGB Conc 31.9 GM/DL (32-36); Mean Corpuscular Volume 94.3 FL (87-102); Monocytes % 10.5 % (1.7-12.7); NRBC # 0.15 10*3/uL; Platelet Count 207 T/CUMM (130-400); Red Blood Count 2.79 MC/CUMM (3.8-5.5); Red Cell Distribution Width 15.9 % (9.3-17.3); White Blood Count 16.8 T/CUMM (4-12)
[2019-04-14 03:25] LABS: Calcium 8.4 MG/DL (8.5-10.1); Osmolality,Calculated 269.5 MOS/KG (273-304)
[2019-04-14 03:31] LABS: INR 2.8
[2019-04-14 03:41] LABS: Eosinophils 2 % (0-10); Lymphocytes 7 % (20-55); Nucleated Red Blood Cells 2 (0-5); Segmented Neutrophils 83 % (50-85); Total Cells Counted 100
[2019-04-14 03:42] LABS: Anisocytosis Slight; Microcytosis 1+; Polychromasia Few
[2019-04-14 03:43] LABS: Platelet Estimate Normal
[2019-04-14] MEDS: traMADol 50 MG TABLET PO PRN (05:38)
[2019-04-14] MEDS: CLORAZEPATE 3.75 MG TABLET PO SCH ×3 (05:39→21:12)
[2019-04-14] MEDS: PANTOPRAZOLE 40 MG TABLET PO SCH (08:54)
[2019-04-14] MEDS: DIGOXIN 0.25 MG TABLET PO SCH (08:54)
[2019-04-14] MEDS: glipiZIDE 5 MG TABLET PO SCH (08:54)
[2019-04-14] MEDS: ASPIRIN EC 325 MG TABLET PO SCH (08:54)
[2019-04-14] MEDS: ATENOLOL 50 MG TABLET PO SCH ×2 (08:54→21:12)
[2019-04-14] MEDS: FUROSEMIDE 40 MG TABLET PO SCH (08:55)
[2019-04-14] MEDS: CHLORHEXIDINE 0.12% ORAL RINSE 60 ML BOTTLE SWISH/SPIT SCH ×2 (08:56→21:16)
[2019-04-14] MEDS: INSULIN LISPRO 100 UNIT/ML SUBCUT SCH ×4 (08:56→21:12)
[2019-04-14] MEDS: ATORVASTATIN 40 MG TABLET PO SCH (21:12)
[2019-04-14] MEDS: INSULIN GLARGINE 100 UNIT/ML SUBCUT SCH (21:13)
[2019-04-15] MEDS: LEVALBUTEROL 1.25 MG/3 ML NEB RESP TX SCH ×2 (01:06→07:41)
[2019-04-15 03:10] LABS: Basophils # 0.1 10*3/uL (0.0-0.2); Basophils % 0.4 % (0.0-0.8); Eosinophils # 0.4 10*3/uL (0.0-0.87); Eosinophils % 1.6 % (0.00-10.9); Hematocrit 25.7 VOL% (35.7-47.0); Hemoglobin 8.3 GM/DL (12.0-16.0); Immature Granulocytes % 5.5 %; Immature Granulocytes Absolute 1.21 #; Lymphocytes # 1.8 10*3/uL (1.4-4.0); Lymphocytes % 8.1 % (21.3-54.2); Mean Corpuscular HGB Conc 32.3 GM/DL (32-36); Mean Corpuscular Volume 94.1 FL (87-102); Mean Platelet Volume 11.8 FL (9.6-12.0); Monocytes % 9.4 % (1.7-12.7); NRBC # 0.34 10*3/uL; Platelet Count 261 T/CUMM (130-400); Red Blood Count 2.73 MC/CUMM (3.8-5.5); Red Cell Distribution Width 16.1 % (9.3-17.3); White Blood Count 22.1 T/CUMM (4-12)
[2019-04-15 03:16] LABS: INR 4.1
[2019-04-15 03:30] LABS: Calcium 8.6 MG/DL (8.5-10.1); Osmolality,Calculated 267.7 MOS/KG (273-304)
[2019-04-15 03:36] LABS: Band Neutrophils 8 % (0-10); Lymphocytes 9 % (20-55); Myelocytes 1 %; Nucleated Red Blood Cells 3 (0-5); Segmented Neutrophils 75 % (50-85); Total Cells Counted 100
[2019-04-15 03:38] LABS: Anisocytosis 1+; Hypochromasia 1+; Platelet Estimate Adequate
[2019-04-15] MEDS: CLORAZEPATE 3.75 MG TABLET PO SCH (04:06)
[2019-04-15 04:10] LABS: PT Patient Result 44.4 SECS
[2019-04-15] MEDS: DIGOXIN 0.25 MG TABLET PO SCH (08:53)
[2019-04-15] MEDS: INSULIN LISPRO 100 UNIT/ML SUBCUT SCH (08:53)
[2019-04-15] MEDS: ATENOLOL 50 MG TABLET PO SCH (08:54)
[2019-04-15] MEDS: FUROSEMIDE 40 MG TABLET PO SCH (08:54)
[2019-04-15] MEDS: ASPIRIN EC 325 MG TABLET PO SCH (08:54)
[2019-04-15] MEDS: glipiZIDE 5 MG TABLET PO SCH (08:54)
[2019-04-15] MEDS: PANTOPRAZOLE 40 MG TABLET PO SCH (08:54)
[2019-04-15] MEDS: CHLORHEXIDINE 0.12% ORAL RINSE 60 ML BOTTLE SWISH/SPIT SCH (08:55)
[2019-04-15] MEDS ORDERED: FUROSEMIDE 40 MG/4 ML VIAL IV ONE (10:24)
[2019-04-15 12:30] VITALS: BP 94/65
[2019-04-15] MEDS ORDERED: FUROSEMIDE 40 MG TABLET PO SCH (16:00)
[2019-04-16] MEDS ORDERED: ASPIRIN EC 81 MG TABLET PO SCH (09:00)
== END 2019-04-15 14:42 | disposition home health service (06) | DRG 220 ==
LOC: N.SDSINP 05:34 → N.CVR 08:45 → N.TELES 04-08 10:28
PROVIDERS: ADMIT Thoracic Surgery (Cardiothoracic Vascular Surgery); ATTEND Thoracic Surgery (Cardiothoracic Vascular Surgery)

== ENCOUNTER 2019-04-17 19:21 | Inpatient (IN) ==
[2019-04-17 20:14] LABS: Basophils # 0.1 10*3/uL (0.0-0.2); Basophils % 0.5 % (0.0-0.8); Eosinophils # 0.2 10*3/uL (0.0-0.87); Eosinophils % 0.6 % (0.00-10.9); Hemoglobin 8.2 GM/DL (12.0-16.0); Immature Granulocytes % 5.2 %; Immature Granulocytes Absolute 1.47 #; Lymphocytes # 2.2 10*3/uL (1.4-4.0); Lymphocytes % 7.7 % (21.3-54.2); Mean Corpuscular HGB Conc 31.5 GM/DL (32-36); Mean Corpuscular Volume 94.9 FL (87-102); Mean Platelet Volume 11.1 FL (9.6-12.0); Monocytes % 8.3 % (1.7-12.7); NRBC # 0.96 10*3/uL; Neutrophils % 77.7 % (38.7-73.9); Platelet Count 372 T/CUMM (130-400); Red Blood Count 2.74 MC/CUMM (3.8-5.5); Red Cell Distribution Width 16.8 % (9.3-17.3); White Blood Count 28.3 T/CUMM (4-12)
[2019-04-17 20:36] LABS: Anisocytosis 2+; Atypical Lymphocytes 1+; Band Neutrophils 2 % (0-10); Hypochromasia Slight; Lymphocytes 7 % (20-55); Macrocytosis 2+; Metamyelocytes 1 %; Microcytosis 1+; Nucleated Red Blood Cells 4 (0-5); Platelet Estimate Normal; Polychromasia 2+; Segmented Neutrophils 85 % (50-85); Total Cells Counted 100
[2019-04-17] MEDS ORDERED: LEVOFLOXACIN INJ 750 MG in PREMIX 1 EACH IV STA (20:36)
[2019-04-17] MEDS ORDERED: ALBUTEROL/IPRATROPIUM 3 ML NEB RESP TX STA (20:36)
[2019-04-17] MEDS ORDERED: AZITHROMYCIN INJ 500 MG in SODIUM CHLORIDE 0.9% 250 ML IV STA ×2 (20:36→20:43)
[2019-04-17] MEDS ORDERED: methylPREDNISolone SOD SUC 125 MG/2 ML VIAL IV STA (20:36)
[2019-04-17 20:37] LABS: PT Patient Result 73.7 SECS; Partial Thromboplastin Time 47.1 SECS (0-40); Schistocytes Slight
[2019-04-17 20:39] LABS: INR 6.9
[2019-04-17] MEDS ORDERED: MIDAZOLAM 2 MG/2 ML VIAL IV STA (20:40)
[2019-04-17] MEDS ORDERED: MORPHINE 4 MG/1 ML VIAL IV STA (20:40)
[2019-04-17] MEDS ORDERED: AMIODARONE INJ 150 MG in DEXTROSE 5% 100 ML IV ONE (20:42)
[2019-04-17 20:51] LABS: ABG Base Excess -0.5 MMOL/L (-2.5-2.5); ABG Oxygen Saturation 95.5 % (95-100); ABG PCO2 32.6 MM HG (35-48); ABG PH 7.455 (7.35-7.45); ABG PO2 76.7 MM HG (80-95); ABG TCO2 21.2 MMOL/L (23-27); Allen Test Positive
[2019-04-17 20:55] LABS: Alanine Aminotransferase 519 U/L (13-56); Albumin 2.4 G/DL (3.4-5.0); Alkaline Phosphatase 205 U/L (45-117); Aspartate Amino Transferase 576 U/L (0-37); Blood Urea Nitrogen 57 MG/DL (7-18); Calcium 8.5 MG/DL (8.5-10.1); Glucose 123 MG/DL (74-106); Osmolality,Calculated 278.7 MOS/KG (273-304); Total Protein 6.6 G/DL (6.4-8.3)
[2019-04-17] MEDS ORDERED: MORPHINE 4 MG/1 ML VIAL IV ONE (21:00)
[2019-04-17] MEDS ORDERED: AMIODARONE INJ 450 MG in DEXTROSE 5% 241 ML IV SCH (21:00)
[2019-04-17] MEDS ORDERED: LIDOCAINE 1%/EPI INJ 20 ML VIAL ONE (21:01)
[2019-04-17] MEDS ORDERED: cefTRIAXone 1,000 MG in SODIUM CHLORIDE 0.9% 100 ML IV STA (21:51)
[2019-04-17] MEDS ORDERED: ONDANSETRON 4 MG/2 ML VIAL IV PRN (22:12)
[2019-04-17] MEDS ORDERED: DEXTROSE 50% 25 GM/50 ML VIAL IV PRN ×2 (22:12)
[2019-04-17] MEDS ORDERED: GLUCAGON 1 MG VIAL IM PRN ×2 (22:12)
[2019-04-17] MEDS ORDERED: cefTRIAXone 2,000 MG in SYRINGE 1 EACH IV SCH (22:30)
[2019-04-17] MEDS ORDERED: cefTRIAXone 1,000 MG VIAL ONE (23:12)
[2019-04-18] MEDS ORDERED: SODIUM CHLORIDE 0.9% 1,000 ML IV ONE (00:26)
[2019-04-18] MEDS ORDERED: SODIUM CHLORIDE 0.9% 1,000 ML IV SCH (00:30)
[2019-04-18] MEDS: ALBUTEROL/IPRATROPIUM 3 ML NEB RESP TX SCH ×6 (02:09→23:00)
[2019-04-18 06:07] LABS: Basophils # 0.1 10*3/uL (0.0-0.2); Basophils % 0.4 % (0.0-0.8); Eosinophils % 0.1 % (0.00-10.9); Hematocrit 26.8 VOL% (35.7-47.0); Hemoglobin 8.5 GM/DL (12.0-16.0); Immature Granulocytes % 4.4 %; Immature Granulocytes Absolute 1.22 #; Lymphocytes % 3.6 % (21.3-54.2); Mean Corpuscular HGB Conc 31.7 GM/DL (32-36); Mean Corpuscular Volume 95.4 FL (87-102); Mean Platelet Volume 11.6 FL (9.6-12.0); Monocytes % 2.5 % (1.7-12.7); NRBC # 0.85 10*3/uL; Platelet Count 341 T/CUMM (130-400); Red Blood Count 2.81 MC/CUMM (3.8-5.5); Red Cell Distribution Width 17.1 % (9.3-17.3)
[2019-04-18 06:44] LABS: Albumin 2.3 G/DL (3.4-5.0); Bilirubin,Total 0.8 MG/DL (0.2-1.0); Calcium 8.1 MG/DL (8.5-10.1); Osmolality,Calculated 288.7 MOS/KG (273-304); Total Protein 5.4 G/DL (6.4-8.3)
[2019-04-18 06:46] LABS: Band Neutrophils 4 % (0-10); Eosinophils 1 % (0-10); Hypochromasia Slight; Lymphocytes 1 % (20-55); Metamyelocytes 2 %; Nucleated Red Blood Cells 3 (0-5); Segmented Neutrophils 90 % (50-85); Total Cells Counted 100
[2019-04-18 06:47] LABS: Microcytosis 1+; Platelet Estimate Normal; Polychromasia Slight
[2019-04-18 06:54] LABS: Troponin I 2.31 NG/ML (0.00-0.045)
[2019-04-18] MEDS ORDERED: FUROSEMIDE 40 MG/4 ML VIAL IV SCH (08:00)
[2019-04-18] MEDS: FENOFIBRATE 145 MG TABLET PO SCH (08:22)
[2019-04-18] MEDS: methylPREDNISolone SOD SUC 40 MG/1 ML VIAL IV SCH ×3 (08:22→23:10)
[2019-04-18] MEDS: PANTOPRAZOLE 40 MG TABLET PO SCH (08:22)
[2019-04-18] MEDS: glipiZIDE 5 MG TABLET PO SCH ×2 (08:22→17:13)
[2019-04-18] MEDS: PIPERACILLIN/TAZOBACTAM 3,375 MG in SODIUM CHLORIDE 0.9% 100 ML IV SCH ×3 (08:26→23:11)
[2019-04-18] MEDS ORDERED: LEVOFLOXACIN 750 MG TABLET PO SCH (09:00)
[2019-04-18] MEDS ORDERED: methylPREDNISolone SOD SUC 40 MG/1 ML VIAL IV SCH (09:00)
[2019-04-18] MEDS: INSULIN REGULAR 100 UNIT/ML SUBCUT SCH ×4 (09:53→23:10)
[2019-04-18 10:38] LABS: PT Patient Result 112.4 SECS
[2019-04-18 10:39] LABS: INR 10.6
[2019-04-18] MEDS ORDERED: SODIUM CHLORIDE 0.9% 1,000 ML IV PRN ×2 (11:13→15:11)
[2019-04-18 13:10] LABS: Hepatitis B Core IgM Quant 0.55 Index; Hepatitis B Surface Ag Quant < 0.10 Index; Hepatitis B Surface Ag Result Negative (Negative); Hepatitis C Virus Ab Quant 0.06 Index; Hepatitis C Virus Ab Result Negative (Negative)
[2019-04-18] MEDS: DIGOXIN 0.25 MG TABLET PO SCH (14:26)
[2019-04-18] MEDS ORDERED: FUROSEMIDE 40 MG/4 ML VIAL IV ONE (15:32)
[2019-04-18] MEDS: ATORVASTATIN 40 MG TABLET PO SCH (20:49)
[2019-04-19] MEDS: ALBUTEROL/IPRATROPIUM 3 ML NEB RESP TX SCH ×5 (03:30→20:41)
[2019-04-19 04:57] LABS: Basophils # 0.1 10*3/uL (0.0-0.2); Basophils % 0.3 % (0.0-0.8); Hematocrit 23.3 VOL% (35.7-47.0); Hemoglobin 7.4 GM/DL (12.0-16.0); Immature Granulocytes % 4.4 %; Immature Granulocytes Absolute 1.04 #; Lymphocytes # 1.4 10*3/uL (1.4-4.0); Mean Corpuscular HGB Conc 31.8 GM/DL (32-36); Mean Corpuscular Volume 95.5 FL (87-102); Monocytes % 5.7 % (1.7-12.7); NRBC # 1.77 10*3/uL; Neutrophils % 83.6 % (38.7-73.9); Platelet Count 314 T/CUMM (130-400); Red Blood Count 2.44 MC/CUMM (3.8-5.5); Red Cell Distribution Width 17.2 % (9.3-17.3); White Blood Count 23.4 T/CUMM (4-12)
[2019-04-19 05:07] LABS: Albumin 2.8 G/DL (3.4-5.0); Osmolality,Calculated 291.5 MOS/KG (273-304); Total Protein 6.7 G/DL (6.4-8.3)
[2019-04-19 05:28] LABS: Band Neutrophils 2 % (0-10); Hypochromasia Slight; Lymphocytes 5 % (20-55); Nucleated Red Blood Cells 7 (0-5); Platelet Estimate Normal; Segmented Neutrophils 90 % (50-85); Total Cells Counted 100
[2019-04-19 05:37] LABS: INR 3.3
[2019-04-19 05:44] LABS: PT Patient Result 35.7 SECS
[2019-04-19] MEDS: methylPREDNISolone SOD SUC 40 MG/1 ML VIAL IV SCH ×3 (06:34→22:11)
[2019-04-19] MEDS: PIPERACILLIN/TAZOBACTAM 3,375 MG in SODIUM CHLORIDE 0.9% 100 ML IV SCH ×3 (06:35→22:10)
[2019-04-19 07:05] LABS: Apearance,Urine CLOUDY (Clear); Bilirubin,Urine Negative (Negative); Blood, Urine Small mg/dL (Negative); Glucose,Urine (UA) Negative (Negative); Ketones,Urine Negative (Negative); Mucus,Urine Occasional /LPF (Occasional); Nitrite,Urine Negative (Negative); Protein,Urine Negative; RBC,Urine 1 /HPF (0-4); Squamous Epithelial Cell,Urine Occasional /HPF (0-10); Urine Color Yellow (Yellow); Urine Specific Gravity 1.019 (1.001-1.035); Urine Urobilinogen < 2.0 EU/DL (0.2-1.0); WBC,Urine 1 /HPF (0-6)
[2019-04-19] MEDS ORDERED: SODIUM CHLORIDE 0.9% 1,000 ML IV PRN (07:28)
[2019-04-19] MEDS: glipiZIDE 5 MG TABLET PO SCH ×2 (08:53→16:35)
[2019-04-19] MEDS: FENOFIBRATE 145 MG TABLET PO SCH (08:54)
[2019-04-19] MEDS: PANTOPRAZOLE 40 MG TABLET PO SCH (08:54)
[2019-04-19] MEDS: INSULIN REGULAR 100 UNIT/ML SUBCUT SCH ×4 (08:54→22:11)
[2019-04-19] MEDS: DIGOXIN 0.25 MG TABLET PO SCH (12:28)
[2019-04-19] MEDS ORDERED: FUROSEMIDE 40 MG/4 ML VIAL IV ONE (12:40)
[2019-04-19 17:14] LABS: Hematocrit 29.8 VOL% (35.7-47.0)
[2019-04-19 17:15] LABS: Hemoglobin 9.1 GM/DL (12.0-16.0)
[2019-04-19] MEDS: ATORVASTATIN 40 MG TABLET PO SCH (20:16)
[2019-04-20] MEDS: ALBUTEROL/IPRATROPIUM 3 ML NEB RESP TX SCH ×7 (00:54→23:57)
[2019-04-20 04:04] LABS: Basophils # 0.1 10*3/uL (0.0-0.2); Basophils % 0.5 % (0.0-0.8); Hematocrit 27.1 VOL% (35.7-47.0); Hemoglobin 8.7 GM/DL (12.0-16.0); Immature Granulocytes % 6.8 %; Immature Granulocytes Absolute 1.59 #; Lymphocytes # 1.3 10*3/uL (1.4-4.0); Lymphocytes % 5.6 % (21.3-54.2); Mean Corpuscular HGB Conc 32.1 GM/DL (32-36); Mean Corpuscular Volume 91.9 FL (87-102); Mean Platelet Volume 11.5 FL (9.6-12.0); Monocytes % 6.6 % (1.7-12.7); NRBC # 2.63 10*3/uL; Neutrophils % 80.5 % (38.7-73.9); Platelet Count 319 T/CUMM (130-400); Red Blood Count 2.95 MC/CUMM (3.8-5.5); Red Cell Distribution Width 18.9 % (9.3-17.3); White Blood Count 23.5 T/CUMM (4-12)
[2019-04-20 04:26] LABS: Albumin 2.6 G/DL (3.4-5.0); Bilirubin,Total 1.1 MG/DL (0.2-1.0); Calcium 8.7 MG/DL (8.5-10.1); Osmolality,Calculated 291.9 MOS/KG (273-304); Total Protein 6.6 G/DL (6.4-8.3)
[2019-04-20 04:31] LABS: Band Neutrophils 1 % (0-10); Lymphocytes 7 % (20-55); Nucleated Red Blood Cells 13 (0-5); Segmented Neutrophils 85 % (50-85)
[2019-04-20 04:34] LABS: Anisocytosis 1+; Hypochromasia 1+; Macrocytosis 1+; Platelet Estimate Normal; Polychromasia Few
[2019-04-20 04:35] LABS: Total Cells Counted 100
[2019-04-20 04:42] LABS: INR 3.3
[2019-04-20] MEDS: PIPERACILLIN/TAZOBACTAM 3,375 MG in SODIUM CHLORIDE 0.9% 100 ML IV SCH ×3 (06:22→23:48)
[2019-04-20] MEDS: methylPREDNISolone SOD SUC 40 MG/1 ML VIAL IV SCH (06:22)
[2019-04-20] MEDS ORDERED: FUROSEMIDE 40 MG/4 ML VIAL IV ONE (07:18)
[2019-04-20] MEDS ORDERED: ALBUMIN 5% 12.5 GM in PREMIX 1 EACH IV ONE (07:21)
[2019-04-20] MEDS: PANTOPRAZOLE 40 MG TABLET PO SCH (08:26)
[2019-04-20] MEDS: FENOFIBRATE 145 MG TABLET PO SCH (08:26)
[2019-04-20] MEDS: glipiZIDE 5 MG TABLET PO SCH ×2 (08:26→17:17)
[2019-04-20] MEDS: INSULIN REGULAR 100 UNIT/ML SUBCUT SCH ×4 (08:27→22:11)
[2019-04-20] MEDS: DIGOXIN 0.25 MG TABLET PO SCH (12:04)
[2019-04-20] MEDS: WARFARIN 2.5 MG TABLET PO SCH (17:17)
[2019-04-20] MEDS: ATORVASTATIN 40 MG TABLET PO SCH (22:12)
[2019-04-21] MEDS: LEVOFLOXACIN 750 MG TABLET PO SCH ×2 (00:45→09:21)
[2019-04-21] MEDS: ALBUTEROL/IPRATROPIUM 3 ML NEB RESP TX SCH ×6 (03:00→23:15)
[2019-04-21 04:57] LABS: Basophils # 0.1 10*3/uL (0.0-0.2); Basophils % 0.4 % (0.0-0.8); Hematocrit 28.2 VOL% (35.7-47.0); Hemoglobin 9.1 GM/DL (12.0-16.0); Immature Granulocytes % 4.9 %; Immature Granulocytes Absolute 1.17 #; Lymphocytes # 2.6 10*3/uL (1.4-4.0); Lymphocytes % 10.6 % (21.3-54.2); Mean Corpuscular HGB Conc 32.3 GM/DL (32-36); Mean Corpuscular Volume 93.1 FL (87-102); Mean Platelet Volume 11.2 FL (9.6-12.0); Monocytes % 9.3 % (1.7-12.7); NRBC # 5.19 10*3/uL; Neutrophils % 74.8 % (38.7-73.9); Platelet Count 317 T/CUMM (130-400); Red Blood Count 3.03 MC/CUMM (3.8-5.5); Red Cell Distribution Width 19.7 % (9.3-17.3); White Blood Count 24.1 T/CUMM (4-12)
[2019-04-21 05:22] LABS: Band Neutrophils 3 % (0-10); Hypochromasia 1+; Lymphocytes 10 % (20-55); Nucleated Red Blood Cells 28 (0-5); Platelet Estimate Normal; Polychromasia Few; Segmented Neutrophils 73 % (50-85); Total Cells Counted 100
[2019-04-21 05:27] LABS: INR 2.6
[2019-04-21 05:36] LABS: Bilirubin,Total 1.3 MG/DL (0.2-1.0); Calcium 8.7 MG/DL (8.5-10.1); Osmolality,Calculated 284.2 MOS/KG (273-304); Total Protein 6.1 G/DL (6.4-8.3)
[2019-04-21 05:42] LABS: PT Patient Result 27.8 SECS
[2019-04-21] MEDS: PIPERACILLIN/TAZOBACTAM 3,375 MG in SODIUM CHLORIDE 0.9% 100 ML IV SCH (06:45)
[2019-04-21] MEDS: INSULIN REGULAR 100 UNIT/ML SUBCUT SCH ×4 (08:43→21:31)
[2019-04-21] MEDS: glipiZIDE 5 MG TABLET PO SCH ×2 (08:44→17:20)
[2019-04-21] MEDS: FENOFIBRATE 145 MG TABLET PO SCH (09:17)
[2019-04-21] MEDS: PANTOPRAZOLE 40 MG TABLET PO SCH (09:17)
[2019-04-21] MEDS: DIGOXIN 0.25 MG TABLET PO SCH (12:59)
[2019-04-21] MEDS: FUROSEMIDE 40 MG TABLET PO SCH (17:20)
[2019-04-21] MEDS: WARFARIN 2.5 MG TABLET PO SCH (17:20)
[2019-04-21] MEDS: ATORVASTATIN 40 MG TABLET PO SCH (21:26)
[2019-04-22] MEDS: ALBUTEROL/IPRATROPIUM 3 ML NEB RESP TX SCH ×4 (03:05→13:55)
[2019-04-22 04:40] LABS: Basophils # 0.1 10*3/uL (0.0-0.2); Basophils % 0.3 % (0.0-0.8); Hematocrit 28.4 VOL% (35.7-47.0); Hemoglobin 8.9 GM/DL (12.0-16.0); Immature Granulocytes % 3.3 %; Immature Granulocytes Absolute 0.66 #; Lymphocytes # 1.5 10*3/uL (1.4-4.0); Lymphocytes % 7.5 % (21.3-54.2); Mean Corpuscular HGB Conc 31.3 GM/DL (32-36); Mean Corpuscular Volume 95.6 FL (87-102); Mean Platelet Volume 11.5 FL (9.6-12.0); Monocytes % 8.2 % (1.7-12.7); NRBC # 3.31 10*3/uL; Neutrophils % 80.7 % (38.7-73.9); Platelet Count 272 T/CUMM (130-400); Red Blood Count 2.97 MC/CUMM (3.8-5.5); Red Cell Distribution Width 20.8 % (9.3-17.3); White Blood Count 20.3 T/CUMM (4-12)
[2019-04-22 05:04] LABS: Albumin 2.7 G/DL (3.4-5.0); Bilirubin,Total 1.4 MG/DL (0.2-1.0); Calcium 8.7 MG/DL (8.5-10.1); Osmolality,Calculated 290.5 MOS/KG (273-304); Total Protein 6.2 G/DL (6.4-8.3)
[2019-04-22 05:23] LABS: INR 2.8
[2019-04-22 05:51] LABS: Band Neutrophils 1 % (0-10); Lymphocytes 7 % (20-55); Nucleated Red Blood Cells 14 (0-5); Platelet Estimate Normal; Polychromasia Few; Segmented Neutrophils 83 % (50-85); Total Cells Counted 100
[2019-04-22 05:52] LABS: Anisocytosis 2+; Macrocytosis 2+
[2019-04-22 06:19] LABS: PT Patient Result 29.9 SECS
[2019-04-22] MEDS: INSULIN REGULAR 100 UNIT/ML SUBCUT SCH ×2 (08:38→12:05)
[2019-04-22] MEDS: PANTOPRAZOLE 40 MG TABLET PO SCH (08:39)
[2019-04-22] MEDS: glipiZIDE 5 MG TABLET PO SCH (08:39)
[2019-04-22] MEDS: LEVOFLOXACIN 750 MG TABLET PO SCH (08:40)
[2019-04-22] MEDS: FENOFIBRATE 145 MG TABLET PO SCH (08:40)
[2019-04-22] MEDS: FUROSEMIDE 40 MG TABLET PO SCH (08:40)
[2019-04-22] MEDS: DIGOXIN 0.25 MG TABLET PO SCH (12:05)
[2019-04-22 12:08] VITALS: BP 104/63
== END 2019-04-22 14:05 | disposition swing bed (61) | DRG 186 ==
LOC: EDUNIT# → N.ED 19:21 → N.EDINP 19:21 → N.TELEN 22:15
PROVIDERS: ADMIT Thoracic Surgery (Cardiothoracic Vascular Surgery); ATTEND Thoracic Surgery (Cardiothoracic Vascular Surgery)

== ENCOUNTER 2019-04-29 12:17 | Inpatient (IN) ==
[2019-04-29] MEDS ORDERED: BISACODYL 5 MG TABLET PO PRN (14:13)
[2019-04-29] MEDS ORDERED: PROMETHAZINE 25 MG/1 ML VIAL IM PRN (14:13)
[2019-04-29] MEDS ORDERED: ACETAMINOPHEN 325 MG TABLET PO PRN (14:13)
[2019-04-29] MEDS ORDERED: SODIUM CHLORIDE 0.9% 1,000 ML IV SCH (14:30)
[2019-04-29] MEDS ORDERED: ENOXAPARIN 40 MG/0.4 ML SYRINGE SUBCUT SCH (14:30)
[2019-04-29 14:49] LABS: Basophils % 0.2 % (0.0-0.8); Eosinophils # 0.1 10*3/uL (0.0-0.87); Eosinophils % 0.7 % (0.00-10.9); Hematocrit 31.7 VOL% (35.7-47.0); Hemoglobin 9.5 GM/DL (12.0-16.0); Immature Granulocytes % 0.7 %; Immature Granulocytes Absolute 0.09 #; Lymphocytes # 1.2 10*3/uL (1.4-4.0); Mean Corpuscular Volume 100.3 FL (87-102); Mean Platelet Volume 11.6 FL (9.6-12.0); Monocytes % 9.9 % (1.7-12.7); NRBC # 0.08 10*3/uL; Neutrophils % 78.5 % (38.7-73.9); Platelet Count 287 T/CUMM (130-400); Red Blood Count 3.16 MC/CUMM (3.8-5.5); Red Cell Distribution Width 23.5 % (9.3-17.3); White Blood Count 12.1 T/CUMM (4-12)
[2019-04-29] MEDS ORDERED: DEXTROSE 50% 25 GM/50 ML VIAL IV PRN (14:58)
[2019-04-29] MEDS ORDERED: GLUCAGON 1 MG VIAL IM PRN (14:58)
[2019-04-29 15:21] LABS: Albumin 2.6 G/DL (3.4-5.0); Calcium 8.5 MG/DL (8.5-10.1); Osmolality,Calculated 272.2 MOS/KG (273-304); Total Protein 5.8 G/DL (6.4-8.3)
[2019-04-29 15:32] LABS: INR 1.5; PT Patient Result 16.4 SECS
[2019-04-29] MEDS: MORPHINE 4 MG/1 ML VIAL IV PRN ×2 (16:04→21:20)
[2019-04-29] MEDS: PIPERACILLIN/TAZOBACTAM 3,375 MG in SODIUM CHLORIDE 0.9% 100 ML IV SCH (16:06)
[2019-04-29] MEDS ORDERED: DEXTROSE 10% 250 ML IV ONE (16:23)
[2019-04-29 17:04] LABS: Polychromasia 2+
[2019-04-29 17:05] LABS: Macrocytosis 2+; Microcytosis 1+
[2019-04-29 17:06] LABS: Hypochromasia Slight; Platelet Estimate Normal; Stomatocytes Few
[2019-04-29 17:07] LABS: Anisocytosis 3+
[2019-04-29] MEDS: INSULIN LISPRO 100 UNIT/ML SUBCUT SCH ×2 (17:37→21:23)
[2019-04-29] MEDS: WARFARIN 2.5 MG TABLET PO SCH (18:48)
[2019-04-29] MEDS: HEPARIN DRIP 25,000 UNITS/500 ML PREMIX IV SCH (18:50)
[2019-04-29] MEDS ORDERED: DEXTROSE 10% 250 ML BAG IV PRN (21:15)
[2019-04-29] MEDS: LACTATED RINGERS 1,000 ML IV SCH (21:23)
[2019-04-30] MEDS: PIPERACILLIN/TAZOBACTAM 3,375 MG in SODIUM CHLORIDE 0.9% 100 ML IV SCH ×3 (01:58→17:37)
[2019-04-30 02:38] LABS: Basophils % 0.2 % (0.0-0.8); Eosinophils # 0.1 10*3/uL (0.0-0.87); Eosinophils % 0.8 % (0.00-10.9); Hematocrit 32.6 VOL% (35.7-47.0); Hemoglobin 9.6 GM/DL (12.0-16.0); Immature Granulocytes % 0.7 %; Immature Granulocytes Absolute 0.08 #; Lymphocytes # 1.1 10*3/uL (1.4-4.0); Lymphocytes % 8.9 % (21.3-54.2); Mean Corpuscular HGB Conc 29.4 GM/DL (32-36); Mean Corpuscular Volume 100.6 FL (87-102); Mean Platelet Volume 11.5 FL (9.6-12.0); Monocytes % 9.4 % (1.7-12.7); NRBC # 0.06 10*3/uL; Platelet Count 267 T/CUMM (130-400); Red Blood Count 3.24 MC/CUMM (3.8-5.5); Red Cell Distribution Width 23.5 % (9.3-17.3); White Blood Count 11.9 T/CUMM (4-12)
[2019-04-30 02:56] LABS: Albumin 2.7 G/DL (3.4-5.0); Bilirubin,Total 1.2 MG/DL (0.2-1.0); Osmolality,Calculated 271.2 MOS/KG (273-304); Total Protein 5.9 G/DL (6.4-8.3)
[2019-04-30 03:04] LABS: Risk Ratio 2.45; Thyroid Stimulating Hormone 8.77 uIU/ml (0.358-3.74)
[2019-04-30 04:43] LABS: Apearance,Urine CLEAR (Clear); Bilirubin,Urine Negative (Negative); Blood, Urine Moderate mg/dL (Negative); Glucose,Urine (UA) Negative (Negative); Ketones,Urine Negative (Negative); Nitrite,Urine Negative (Negative); Protein,Urine 100 MG/DL; RBC,Urine 3 /HPF (0-4); Squamous Epithelial Cell,Urine Occasional /HPF (0-10); Urine Color Yellow (Yellow); Urine Specific Gravity 1.017 (1.001-1.035); Urine Urobilinogen < 2.0 EU/DL (0.2-1.0); WBC,Urine <1 /HPF (0-6)
[2019-04-30 05:18] LABS: Anisocytosis 1+; Macrocytosis Slight; Polychromasia Few
[2019-04-30 05:19] LABS: Platelet Estimate Normal; Stomatocytes Slight; Target Cells Slight
[2019-04-30] MEDS: MORPHINE 4 MG/1 ML VIAL IV PRN ×3 (05:20→14:00)
[2019-04-30] MEDS: INSULIN LISPRO 100 UNIT/ML SUBCUT SCH ×4 (09:08→22:45)
[2019-04-30] MEDS: DIGOXIN 0.25 MG TABLET PO SCH (09:10)
[2019-04-30] MEDS: PANTOPRAZOLE 40 MG TABLET PO SCH (09:11)
[2019-04-30] MEDS: HEPARIN DRIP 25,000 UNITS/500 ML PREMIX IV SCH (12:39)
[2019-04-30] MEDS: PARoxetine 10 MG TABLET PO SCH (12:49)
[2019-04-30] MEDS: ONDANSETRON 4 MG/2 ML VIAL IV PRN ×2 (13:50→17:41)
[2019-04-30] MEDS: WARFARIN 2.5 MG TABLET PO SCH (17:37)
[2019-05-01] MEDS: ONDANSETRON 4 MG/2 ML VIAL IV PRN ×2 (01:18→05:48)
[2019-05-01] MEDS: LACTATED RINGERS 1,000 ML IV SCH ×2 (01:57→02:55)
[2019-05-01] MEDS: PIPERACILLIN/TAZOBACTAM 3,375 MG in SODIUM CHLORIDE 0.9% 100 ML IV SCH ×3 (02:40→16:57)
[2019-05-01] MEDS: HEPARIN DRIP 25,000 UNITS/500 ML PREMIX IV SCH (06:00)
[2019-05-01 06:26] LABS: PT Patient Result 57.8 SECS
[2019-05-01 06:27] LABS: INR 5.4
[2019-05-01 07:33] LABS: Albumin 1.9 G/DL (3.4-5.0); Bilirubin,Total 2.3 MG/DL (0.2-1.0); Calcium 6.6 MG/DL (8.5-10.1); Osmolality,Calculated 294.7 MOS/KG (273-304); Total Protein 4.9 G/DL (6.4-8.3)
[2019-05-01] MEDS ORDERED: HEPARIN/NACL 0.9% 2 UNITS/ML 500 ML IV ONE ×2 (07:56→10:53)
[2019-05-01] MEDS ORDERED: PROPOFOL 1,000 MG/100 ML BOTTLE IV ONE (08:04)
[2019-05-01] MEDS ORDERED: SODIUM CHLORIDE 0.9% 1,000 ML IV PRN (08:05)
[2019-05-01] MEDS: NOREPINEPHRINE 8 MG in SODIUM CHLORIDE 0.9% 242 ML IV PRN ×3 (08:10→20:37)
[2019-05-01 08:22] LABS: ABG Base Excess -11.7 MMOL/L (-2.5-2.5); ABG HCO3 18.5 MMOL/L (20-26); ABG Oxygen Saturation 18.5 % (95-100); ABG PCO2 65.9 MM HG (35-48); ABG TCO2 20.5 MMOL/L (23-27); Pt O2 Delivery Device Ventilator
[2019-05-01] MEDS ORDERED: SODIUM BICARBONATE 50 MEQ/50 ML VIAL IV ONE ×5 (08:22→14:04)
[2019-05-01 08:24] LABS: ABG PH 7.066 (7.35-7.45)
[2019-05-01] MEDS: PROPOFOL 1,000 MG/100 ML BOTTLE IV SCH ×2 (08:30→20:36)
[2019-05-01 08:40] LABS: Basophils # 0.1 10*3/uL (0.0-0.2); Basophils % 0.4 % (0.0-0.8); Hematocrit 33.4 VOL% (35.7-47.0); Hemoglobin 9.2 GM/DL (12.0-16.0); Immature Granulocytes % 3.9 %; Lymphocytes # 1.7 10*3/uL (1.4-4.0); Lymphocytes % 6.4 % (21.3-54.2); Mean Corpuscular HGB Conc 27.5 GM/DL (32-36); Mean Corpuscular Volume 109.2 FL (87-102); Mean Platelet Volume 11.6 FL (9.6-12.0); Monocytes % 10.2 % (1.7-12.7); Neutrophils % 79.1 % (38.7-73.9); Platelet Count 256 T/CUMM (130-400); Red Blood Count 3.06 MC/CUMM (3.8-5.5); Red Cell Distribution Width 23.6 % (9.3-17.3); White Blood Count 25.9 T/CUMM (4-12)
[2019-05-01 08:44] LABS: Partial Thromboplastin Time 34.5 SECS (0-40)
[2019-05-01 08:49] LABS: INR 3.8
[2019-05-01 08:52] LABS: PT Patient Result 41.1 SECS
[2019-05-01] MEDS ORDERED: FAMOTIDINE 20 MG/2 ML VIAL IV SCH (09:30)
[2019-05-01] MEDS ORDERED: MAGNESIUM SULF RIDER 2 GM in PREMIX 1 EACH IV PRN (09:31)
[2019-05-01] MEDS ORDERED: POTASSIUM CHLORIDE RIDER 10 MEQ in PREMIX 1 EACH IV PRN (09:31)
[2019-05-01 09:33] LABS: Albumin 2.2 G/DL (3.4-5.0); Bilirubin,Total 2.8 MG/DL (0.2-1.0); Calcium 8.1 MG/DL (8.5-10.1); Osmolality,Calculated 282.8 MOS/KG (273-304); Total Protein 5.2 G/DL (6.4-8.3)
[2019-05-01 09:37] LABS: ABG Base Excess -9.5 MMOL/L (-2.5-2.5); ABG HCO3 15.2 MMOL/L (20-26); ABG Oxygen Saturation 99.7 % (95-100); ABG PCO2 28.8 MM HG (35-48); ABG PH 7.339 (7.35-7.45); ABG PO2 444.4 MM HG (80-95)
[2019-05-01] MEDS ORDERED: HEPARIN/NACL 0.9% 2 UNITS/ML 1,000 ML IV ONE (09:37)
[2019-05-01] MEDS ORDERED: LIDOCAINE 1% 20 ML VIAL ONE (09:37)
[2019-05-01 10:12] LABS: Amorphous Crystals,Urine Occasional /HPF (Few); Apearance,Urine CLOUDY (Clear); Bilirubin,Urine Negative (Negative); Blood, Urine Moderate mg/dL (Negative); Glucose,Urine (UA) Negative (Negative); Ketones,Urine Negative (Negative); Nitrite,Urine Negative (Negative); Protein,Urine 100 MG/DL; RBC,Urine 4 /HPF (0-4); Squamous Epithelial Cell,Urine Occasional /HPF (0-10); Urine Color Amber (Yellow); Urine Specific Gravity 1.021 (1.001-1.035); WBC,Urine 14 /HPF (0-6)
[2019-05-01] MEDS ORDERED: PHENYLEPHRINE 50 MG/5 ML VIAL ONE (10:38)
[2019-05-01 10:55] LABS: ABG Base Excess -8.8 MMOL/L (-2.5-2.5); ABG HCO3 17.3 MMOL/L (20-26); ABG PCO2 25.4 MM HG (35-48); ABG PH 7.386 (7.35-7.45); ABG TCO2 14.3 MMOL/L (23-27)
[2019-05-01] MEDS: INSULIN LISPRO 100 UNIT/ML SUBCUT SCH ×5 (10:56→22:35)
[2019-05-01] MEDS: PARoxetine 10 MG TABLET PO SCH (10:57)
[2019-05-01] MEDS: DIGOXIN 0.25 MG TABLET PO SCH (10:57)
[2019-05-01] MEDS: PANTOPRAZOLE 40 MG TABLET PO SCH (10:58)
[2019-05-01] MEDS ORDERED: ALTEPLASE 2 MG VIAL ONE (11:17)
[2019-05-01] MEDS ORDERED: ALTEPLASE IV ONE (11:30)
[2019-05-01 12:04] LABS: Band Neutrophils 1 % (0-10); Lymphocytes 5 % (20-55); Nucleated Red Blood Cells 1 (0-5); Segmented Neutrophils 83 % (50-85); Total Cells Counted 100
[2019-05-01 12:05] LABS: Acanthocytes Few; Anisocytosis 2+; Burr Cells Few; Macrocytosis 1+; Microcytosis 1+; Polychromasia Few; Schistocytes Few
[2019-05-01 12:06] LABS: Platelet Estimate Normal
[2019-05-01] MEDS: DEXTROSE 10% 250 ML IV PRN ×2 (12:17→18:28)
[2019-05-01 12:18] LABS: ABG Base Excess -12.7 MMOL/L (-2.5-2.5); ABG HCO3 14.4 MMOL/L (20-26); ABG Oxygen Saturation 98.9 % (95-100); ABG PH 7.296 (7.35-7.45); ABG TCO2 11.9 MMOL/L (23-27)
[2019-05-01 13:12] LABS: Basophils # 0.1 10*3/uL (0.0-0.2); Basophils % 0.2 % (0.0-0.8); Hematocrit 27.1 VOL% (35.7-47.0); Hemoglobin 7.9 GM/DL (12.0-16.0); Immature Granulocytes % 4.1 %; Immature Granulocytes Absolute 1.03 #; Lymphocytes % 4.2 % (21.3-54.2); Mean Corpuscular HGB Conc 29.2 GM/DL (32-36); Mean Corpuscular Volume 105.4 FL (87-102); Mean Platelet Volume 12.2 FL (9.6-12.0); Monocytes % 4.1 % (1.7-12.7); NRBC # 0.37 10*3/uL; Neutrophils % 87.4 % (38.7-73.9); Platelet Count 218 T/CUMM (130-400); Red Blood Count 2.57 MC/CUMM (3.8-5.5); Red Cell Distribution Width 23.7 % (9.3-17.3)
[2019-05-01 13:13] LABS: Troponin I 6.68 NG/ML (0.00-0.045)
[2019-05-01 13:18] LABS: Calcium 7.5 MG/DL (8.5-10.1); Osmolality,Calculated 286.4 MOS/KG (273-304)
[2019-05-01] MEDS ORDERED: HEPARIN DRIP 25,000 UNITS/500 ML PREMIX IV ONE (13:21)
[2019-05-01] MEDS ORDERED: HEPARIN DRIP 25,000 UNITS/500 ML PREMIX IV SCH (13:30)
[2019-05-01] MEDS ORDERED: DEXTROSE 10% 1,000 ML IV SCH (13:30)
[2019-05-01 13:39] LABS: Anisocytosis 2+; Atypical Lymphocytes 1+; Burr Cells 1+; Lymphocytes 2 % (20-55); Macrocytosis 2+; Microcytosis 1+; Nucleated Red Blood Cells 5 (0-5); Platelet Estimate Normal; Segmented Neutrophils 92 % (50-85); Total Cells Counted 100
[2019-05-01 13:40] LABS: ABG Base Excess -14.9 MMOL/L (-2.5-2.5); ABG HCO3 12.9 MMOL/L (20-26); ABG Oxygen Saturation 98.4 % (95-100); ABG PCO2 26.5 MM HG (35-48); ABG PH 7.241 (7.35-7.45); ABG TCO2 10.8 MMOL/L (23-27)
[2019-05-01 14:09] LABS: INR 2.6
[2019-05-01 14:10] LABS: PT Patient Result 27.6 SECS; Partial Thromboplastin Time 48.1 SECS (0-40)
[2019-05-01 14:46] LABS: Albumin 2.5 G/DL (3.4-5.0); Bilirubin,Direct 2.26 MG/DL (0.0-0.20); Bilirubin,Total 3.3 MG/DL (0.2-1.0); Total Protein 5.3 G/DL (6.4-8.3)
[2019-05-01] MEDS ORDERED: SODIUM BICARB INJ 100 MEQ in DEXTROSE 10% 1,000 ML IV SCH (15:00)
[2019-05-01 15:41] LABS: ABG HCO3 13.5 MMOL/L (20-26); ABG Oxygen Saturation 99.3 % (95-100); ABG PCO2 27.3 MM HG (35-48); ABG PH 7.253 (7.35-7.45); ABG TCO2 11.4 MMOL/L (23-27)
[2019-05-01] MEDS: HYDROCORTISONE 100 MG VIAL IV SCH ×2 (16:55→23:34)
[2019-05-01 17:12] LABS: Basophils % 0.1 % (0.0-0.8); Immature Granulocytes % 3.1 %; Mean Corpuscular HGB Conc 27.2 GM/DL (32-36); Mean Corpuscular Volume 108.3 FL (87-102); Mean Platelet Volume 11.9 FL (9.6-12.0); Monocytes % 5.7 % (1.7-12.7); NRBC # 0.62 10*3/uL; Neutrophils % 88.1 % (38.7-73.9); Platelet Count 223 T/CUMM (130-400); Red Blood Count 2.78 MC/CUMM (3.8-5.5); Red Cell Distribution Width 24.5 % (9.3-17.3); White Blood Count 32.3 T/CUMM (4-12)
[2019-05-01 17:18] LABS: Hematocrit 30.1 VOL% (35.7-47.0); Hemoglobin 8.2 GM/DL (12.0-16.0)
[2019-05-01 17:51] LABS: Anisocytosis 2+; Atypical Lymphocytes 1+; Band Neutrophils 2 % (0-10); Lymphocytes 9 % (20-55); Macrocytosis 2+; Microcytosis 1+; Nucleated Red Blood Cells 3 (0-5); Poikilocytosis 2+; Segmented Neutrophils 86 % (50-85); Total Cells Counted 100
[2019-05-01 17:52] LABS: Burr Cells 2+; Platelet Estimate Normal; Polychromasia 1+
[2019-05-01 17:53] LABS: Hypochromasia 1+
[2019-05-01 19:04] VITALS: BP 103/56
[2019-05-01 19:26] LABS: ABG Base Excess -19.1 MMOL/L (-2.5-2.5); ABG HCO3 10.1 MMOL/L (20-26); ABG Oxygen Saturation 99.6 % (95-100); ABG PCO2 22.4 MM HG (35-48); ABG TCO2 7.9 MMOL/L (23-27)
[2019-05-01 19:28] LABS: ABG PH 7.173 (7.35-7.45)
[2019-05-01 19:41] LABS: Calcium 7.2 MG/DL (8.5-10.1); Osmolality,Calculated 285.8 MOS/KG (273-304)
[2019-05-01 19:46] LABS: Basophils # 0.1 10*3/uL (0.0-0.2); Basophils % 0.4 % (0.0-0.8); Immature Granulocytes % 3.6 %; Immature Granulocytes Absolute 1.07 #; Lymphocytes # 0.9 10*3/uL (1.4-4.0); Lymphocytes % 2.8 % (21.3-54.2); Mean Corpuscular HGB Conc 26.9 GM/DL (32-36); Mean Corpuscular Volume 111.5 FL (87-102); Mean Platelet Volume 11.8 FL (9.6-12.0); Monocytes % 5.4 % (1.7-12.7); Neutrophils % 87.8 % (38.7-73.9); Platelet Count 214 T/CUMM (130-400); Red Cell Distribution Width 24.7 % (9.3-17.3)
[2019-05-01 19:48] LABS: Hemoglobin 8.1 GM/DL (12.0-16.0)
[2019-05-01 19:49] LABS: Hematocrit 30.1 VOL% (35.7-47.0)
[2019-05-01 19:53] LABS: Band Neutrophils 1 % (0-10); Lymphocytes 6 % (20-55); Nucleated Red Blood Cells 3 (0-5); Segmented Neutrophils 87 % (50-85); Total Cells Counted 100
[2019-05-01 19:54] LABS: Anisocytosis 3+; Burr Cells 2+; Macrocytosis 3+; Platelet Estimate Normal
[2019-05-01 19:55] LABS: Hypochromasia Slight; Polychromasia 1+
[2019-05-01 20:07] LABS: Albumin 2.5 G/DL (3.4-5.0); Bilirubin,Direct 2.87 MG/DL (0.0-0.20); Bilirubin,Indirect 1.7 MG/DL (0.0-1.0); Bilirubin,Total 4.6 MG/DL (0.2-1.0); Total Protein 5.2 G/DL (6.4-8.3)
[2019-05-02] MEDS: PHENYLEPHRINE DRIP 40 MG/250 ML PREMIX IV PRN ×2 (00:40→04:08)
[2019-05-02 01:29] LABS: Calcium 6.8 MG/DL (8.5-10.1); Osmolality,Calculated 289.7 MOS/KG (273-304)
[2019-05-02 01:53] LABS: ABG Base Excess -24.3 MMOL/L (-2.5-2.5); ABG HCO3 6.9 MMOL/L (20-26); ABG Oxygen Saturation 99.2 % (95-100); ABG TCO2 5.2 MMOL/L (23-27)
[2019-05-02 01:55] LABS: Albumin 2.2 G/DL (3.4-5.0); Bilirubin,Direct 2.9 MG/DL (0.0-0.20); Bilirubin,Indirect 1.3 MG/DL (0.0-1.0); Bilirubin,Total 4.2 MG/DL (0.2-1.0); Total Protein 4.9 G/DL (6.4-8.3)
[2019-05-02] MEDS ORDERED: VASOPRESSIN 100 UNITS in SODIUM CHLORIDE 0.9% 95 ML IV SCH (02:00)
[2019-05-02] MEDS ORDERED: SODIUM BICARBONATE 50 MEQ/50 ML VIAL IV ONE ×2 (02:02)
[2019-05-02 02:06] LABS: Basophils # 0.1 10*3/uL (0.0-0.2); Basophils % 0.3 % (0.0-0.8); Hematocrit 29.3 VOL% (35.7-47.0); Hemoglobin 7.5 GM/DL (12.0-16.0); Immature Granulocytes % 4.3 %; Immature Granulocytes Absolute 1.26 #; Lymphocytes # 1.2 10*3/uL (1.4-4.0); Lymphocytes % 4.2 % (21.3-54.2); Mean Corpuscular HGB Conc 25.6 GM/DL (32-36); Mean Corpuscular Volume 117.7 FL (87-102); Mean Platelet Volume 12.2 FL (9.6-12.0); Monocytes % 6.3 % (1.7-12.7); NRBC # 1.16 10*3/uL; Neutrophils % 84.9 % (38.7-73.9); Platelet Count 193 T/CUMM (130-400); Red Blood Count 2.49 MC/CUMM (3.8-5.5); Red Cell Distribution Width 24.7 % (9.3-17.3); White Blood Count 29.6 T/CUMM (4-12)
[2019-05-02] MEDS ORDERED: PHENYLEPHRINE INJ 160 MG in SODIUM CHLORIDE 0.9% 234 ML IV PRN (02:23)
[2019-05-02] MEDS ORDERED: NOREPINEPHRINE 16 MG in SODIUM CHLORIDE 0.9% 234 ML IV PRN (02:23)
[2019-05-02 02:53] LABS: Band Neutrophils 4 % (0-10); Lymphocytes 3 % (20-55); Nucleated Red Blood Cells 4 (0-5); Platelet Estimate Normal; Segmented Neutrophils 88 % (50-85); Total Cells Counted 100
[2019-05-02] MEDS ORDERED: EPINEPHrine 1 MG/ML VIAL ONE (03:12)
[2019-05-02] MEDS ORDERED: fentaNYL 100 MCG/2 ML VIAL IV ONE (03:44)
[2019-05-02] MEDS: INSULIN LISPRO 100 UNIT/ML SUBCUT SCH (03:59)
[2019-05-02] MEDS: PIPERACILLIN/TAZOBACTAM 3,375 MG in SODIUM CHLORIDE 0.9% 100 ML IV SCH (05:52)
[2019-05-02 06:18] LABS: ABG PCO2 20.3 MM HG (35-48); ABG PH 7.018 (7.35-7.45)
== END 2019-05-02 04:54 | disposition expired | DRG 813 ==
LOC: SUATTDRO 13:35 → N.2E 13:35 → SUATTDRO 14:14 → N.ICU 05-01 08:01
PROVIDERS: ADMIT Internal Medicine; ATTEND Internal Medicine